=== PATIENT | male | born 1960 | race Caucasian/White ===

== ENCOUNTER 2021-04-30 09:34 | Emergency (ER) | payer OTHER ==
--- NOTE | 2021-04-30 10:14 | XRAY Report ---
PROCEDURE: Chest 1 View X-Ray INDICATIONS: chest pain TECHNIQUE: One view of the chest was acquired. COMPARISON: None FINDINGS: Surgical changes and devices: None. Lungs and pleura: No pleural effusions or pneumothorax. Lungs are clear. Mediastinum: Mediastinal contours appear normal. Heart size is normal. Bones and chest wall: No suspicious bony lesions. Mild, age-appropriate degenerative changes can be seen. Overlying soft tissues appear unremarkable. IMPRESSION: Portable chest within normal limits for age. Reviewed by: Dave Louis MD on 04/30/2021 9:13 AM [facility] Approved by: Dave Louis MD on 04/30/2021 9:13 AM [facility] Station ID: [id number]
[2021-04-30 10:18] LABS: BASOPHILS # (AUTO) 0.1 10^3/uL (0.0-0.1); BASOPHILS % (AUTO) 1.2 %; EOSINOPHILS # (AUTO) 0.1 10^3/uL (0.0-0.7); EOSINOPHILS % (AUTO) 2.1 %; HCT - HEMATOCRIT 46.6 % (42.0-52.0); HGB - HEMOGLOBIN 15.5 g/dL (14.0-18.0); LYMPHOCYTES # (AUTO) 1.2 10^3/uL (1.5-3.5); LYMPHOCYTES % (AUTO) 28.3 %; MEAN CORPUSCULAR HGB CONC 33.3 g/dL (32.0-36.0); MEAN CORPUSCULAR VOLUME 96.1 fL (80.0-94.0); MEAN PLATELET VOLUME 11.9 fL (7.4-11.4); MONOCYTES # (AUTO) 0.5 10^3/uL (0.0-1.0); MONOCYTES % (AUTO) 11.2 %; NEUTROPHILS # (AUTO) 2.4 10^3/uL (1.5-6.6); PLT - PLATELET COUNT 177 10^3/uL (130-450); RED BLOOD COUNT 4.85 10^6/uL (4.70-6.10); RED CELL DISTRIBUTION WIDTH 12.4 % (12.0-15.0); WHITE BLOOD COUNT 4.2 x10^3/uL (4.8-10.8)
--- NOTE | 2021-04-30 10:20 | ED Physician Documentation ---
History of Present Illness - Stated complaint Stated Complaint: IRREGULAR HR - Chief complaint Chief Complaint: Cardiac - History obtained from History obtained from: Patient - History of Present Illness Timing: Yesterday - Additonal information Additional information: 60-year-old male visiting from [place] indicates that he has begun to develop an extra beat about 2-3 times per minute for the past day. He denies any chest pain he denies any numbness to his arm or jaw denies any shortness of breath associated with this. He does have a known history of coronary disease with a 65% LAD lesion. He is an avid cyclist. He does recall that he has begun to develop symptoms of increased exertional dyspnea at the beginning of his ride which will resolve during his ride. He is able to do strenuous physical exertion. He has not been ill recently. He is traveling from [place] by car Review of Systems Constitutional: denies: Fever Eyes: denies: Decreased vision Ears: denies: Ear pain Nose: denies: Congestion Throat: denies: Sore throat Cardiac: reports: Palpitations. denies: Chest pain / pressure, Pedal edema, Calf pain Respiratory: denies: Dyspnea, Cough GI: denies: Abdominal Pain, Nausea, Vomiting, Constipation, Diarrhea : denies: Dysuria Skin: denies: Rash Musculoskeletal: denies: Neck pain, Back pain, Extremity pain Neurologic: denies: Generalized weakness, Focal weakness, Numbness PD PAST MEDICAL HISTORY - Present Medications Home Medications: Ambulatory Orders Medication Instructions Recorded Confirmed Alirocumab [Praluent Pen] 150 mg SQ ONCE 04/30/21 04/30/21 Aspirin EC [Ecotrin] 81 mg PO DAILY 04/30/21 04/30/21 Escitalopram Oxalate [Lexapro] 5 mg PO DAILY 04/30/21 04/30/21 - Allergies Allergies/Adverse Reactions: Allergies Allergy/AdvReac Type Severity Reaction Status Date / Time No Known Drug Allergies Allergy Verified 04/30/21 09:59 PD ED PE NORMAL - Vitals Vital signs reviewed: Yes (hypertensive ) - General General: Alert and oriented X 3, No acute distress, Well developed/nourished - HEENT HEENT: Atraumatic, PERRL, EOMI - Neck Neck: Supple, no meningeal sign, No bony TTP - Cardiac Cardiac: RRR, No murmur - Respiratory Respiratory: No respiratory distress, Clear bilaterally - Abdomen Abdomen: Soft, Non tender - Back Back: No CVA TTP, No spinal TTP - Derm Derm: Normal color, Warm and dry, No rash - Extremities Extremities: No deformity, No edema - Neuro Neuro: Alert and oriented X 3, interline clerk 2-12 intact, No motor deficit, No sensory deficit, Normal speech Eye Opening: Spontaneous Motor: Obeys Commands Verbal: Oriented GCS Score: 15 - Psych Psych: Normal mood, Normal affect Results - Vitals Vitals: Vital Signs - 24 hr 04/30/21 04/30/21 04/30/21 09:56 10:42 11:19 Temperature 36.2 C L 36.4 C L 36.4 C L Heart Rate 58 L 59 L 58 L Respiratory 13 24 22 Rate Blood Pressure 141/103 H 114/76 132/88 H O2 Saturation 97 98 97 04/30/21 12:09 Temperature 36.5 C Heart Rate 63 Respiratory 12 Rate Blood Pressure 125/96 H O2 Saturation 12 L Oxygen O2 Source Room air - EKG (time done) 0940 Rate: Rate (enter#) (58) Rhythm: NSR Ischemia: ST elevation c/w ischemia (V1-4) Compare to prior EKG: Old EKG unavailable Computer interpretation: Agree with computer - Labs Labs: Laboratory Tests 04/30/21 04/30/21 04/30/21 09:56 09:56 09:56 WBC 4.2 L RBC 4.85 Hgb 15.5 Hct 46.6 MCV 96.1 H MCH 32.0 H MCHC 33.3 RDW 12.4 Plt Count 177 MPV 11.9 H Neut # (Auto) 2.4 Lymph # (Auto) 1.2 L [place] # (Auto) 0.5 Eos # (Auto) 0.1 Baso # (Auto) 0.1 Absolute Nucleated RBC 0.00 Nucleated RBC % 0.0 Sodium 139 Potassium 4.3 Chloride 102 Carbon Dioxide 28 Anion Gap 9.0 BUN 16 Creatinine 1.1 Estimated GFR (MDRD) 68 L Glucose 107 H Calcium 9.3 Total Bilirubin 1.2 H AST 30 ALT 25 Alkaline Phosphatase 58 Troponin I High Sens 2.4 Total Protein 7.7 Albumin 4.5 Globulin 3.2 Albumin/Globulin Ratio 1.4 Lipase 04/30/21 12:00 WBC RBC Hgb Hct MCV MCH MCHC RDW Plt Count MPV Neut # (Auto) Lymph # (Auto) [place] # (Auto) Eos # (Auto) Baso # (Auto) Absolute Nucleated RBC Nucleated RBC % Sodium Potassium Chloride Carbon Dioxide Anion Gap BUN Creatinine Estimated GFR (MDRD) Glucose Calcium Total Bilirubin AST ALT Alkaline Phosphatase Troponin I High Sens 2.7 Total Protein Albumin Globulin Albumin/Globulin Ratio Lipase - Rads (name of study) chest Radiology: Prelim report reviewed (Impression: Portable chest within normal limits for age.), EMP read indepedently, See rad report Procedures - IVC sono (time) 1058 Bedside IVC sono: IVC measures (cm) (1.12), IVC collapsed c insp (cm) (complete), Dehydration (est 1+ liter deficit) PD MEDICAL DECISION MAKING - ED course Complexity details: reviewed results, re-evaluated patient, considered differential, d/w patient ED course: 60-year-old male with sensation of frequent palpitations is having PACs and he is having them as frequently as 2-3 times per minute. He is found to be mildly dehydrated on interrogation the inferior vena cava and he is administered a liter of saline. 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 Departure - Departure Disposition: 01 Home, Self Care Clinical Impression: Dehydration determined by examination, PAC (premature atrial contraction) Condition: Stable Instructions: ED Dehydration, ED Palpitations Follow-Up: Your, bowling alley floors installer [Other] Comments: Today the extra beats you are having appear to be premature atrial contractions and there is not evidence of atrial fibrillation. We checked your enzymes twice they were normal and your electrocardiogram is abnormal. Your history of exertional dyspnea improved by further exertion indicates presents of "collaterals" or new vessels have grown in to an area not well supplied. Since your symptoms have changed there is a likely progression of your coronary disease and a follow-up with your bowling alley floors installer is recommended urgently.
[2021-04-30 10:27] LABS: ALBUMIN 4.5 g/dL (3.2-5.5); ALBUMIN/GLOBULIN RATIO 1.4 (1.0-2.2); BILIRUBIN,TOTAL 1.2 mg/dL (0.2-1.0); CALCIUM 9.3 mg/dL (8.5-10.3); CREATININE 1.1 mg/dL (0.6-1.2); POTASSIUM 4.3 mmol/L (3.5-5.0); TOTAL PROTEIN 7.7 g/dL (6.7-8.2)
[2021-04-30] MEDS ORDERED: SODIUM CHLORIDE 0.9% 1,000 ML IV STA (11:01)
[2021-04-30 13:09] VITALS: BP 117/85
== END 2021-04-30 13:10 | disposition home or self-care (01) ==
LOC: ED 09:34
DX: E86.0 Dehydration (principal); I49.1 Atrial premature depolarization
CPT/HCPCS: 36415; 80053; 83690; 84484; 85025; 93005; 96360; 99284